=== PATIENT | female | born 1990 | race Asian ===

== ENCOUNTER 2016-03-30 20:30 | Emergency (ER) | payer OTHER ==
[~2016-03-30] VITALS: Ht 160 cm; Wt 63.5 kg
[~2016-03-30 20:30] MED LIST: CYCL10TA35 PO; NAPROSYN500 MG PO
[2016-03-30] MEDS ORDERED: TRAM50TA PO (21:19)
[2016-03-30 21:20] VITALS: BP 124/72; TEMP 98.7
== END 2016-03-30 21:39 | disposition home or self-care (01) ==
LOC: ED 20:30
DX: R10.2 Pelvic and perineal pain (principal)
CPT/HCPCS: 81000; 81025; 96372; 99283; J1885

== ENCOUNTER 2016-04-27 11:25 | Emergency (ER) | payer OTHER ==
[~2016-04-27] VITALS: Ht 160 cm; Wt 63.5 kg
[~2016-04-27 11:25] MED LIST changes: +TRAM50TA PO
[2016-04-27 12:50] VITALS: BP 132/81; TEMP 98.2
== END 2016-04-27 12:50 | disposition home or self-care (01) ==
LOC: ED 11:25
DX: H01.004 Unspecified blepharitis left upper eyelid (principal)
CPT/HCPCS: 99282

== ENCOUNTER 2016-07-21 01:25 | Emergency (ER) | payer OTHER ==
[~2016-07-21] VITALS: Ht 160 cm; Wt 66.7 kg
[2016-07-21 02:34] LABS: PLATELET COUNT 272 K/uL (152-353)
[2016-07-21 03:28] VITALS: BP 126/77; TEMP 98
== END 2016-07-21 03:29 | disposition home or self-care (01) ==
LOC: ED 01:25
DX: R10.84 Generalized abdominal pain (principal)
CPT/HCPCS: 81000; 85027; 96372; 99283; J1170; J2405

== ENCOUNTER 2020-02-03 01:42 | Emergency (ER) | payer OTHER ==
[~2020-02-03] VITALS: Ht 160 cm; Wt 71.2 kg
[2020-02-03 04:40] VITALS: BP 128/88; TEMP 98.3
== END 2020-02-03 04:33 | disposition home or self-care (01) ==
LOC: ED 01:42
DX: N39.0 Urinary tract infection, site not specified (principal)
CPT/HCPCS: 81000; 81025; 87086; 87088; 96360; 96365; 99284; J0696

== ENCOUNTER 2020-03-16 16:06 | Outpatient (CLI) | payer OTHER | END 2020-03-16 20:12 | disposition home or self-care (01) | LOC: RAD 16:06 | PROVIDERS: ATTEND Nurse Practitioner Family | DX: M25.551 Pain in right hip (principal) ==

== ENCOUNTER 2020-11-02 01:15 | Emergency (ER) | payer OTHER ==
[~2020-11-02] VITALS: Ht 160 cm; Wt 71.2 kg
[2020-11-02 01:55] VITALS: BP 152/101; TEMP 99.1
== END 2020-11-02 01:55 | disposition home or self-care (01) ==
LOC: ED 01:15
DX: J06.9 Acute upper respiratory infection, unspecified (principal); F17.210 Nicotine dependence, cigarettes, uncomplicated
CPT/HCPCS: 87651; 99282